=== PATIENT | male | born 1950 | race Caucasian/White ===

== ENCOUNTER 2017-11-22 13:15 | Emergency (ER) | payer MEDICARE, BC ==
--- NOTE | 2017-11-22 14:12 | EDM.PDOC ---
ED HPI GENERAL MEDICAL PROBLEM - General Chief Complaint: ENT Problem Stated Complaint: NOSEBLEED Time Seen by Provider: 11/22/17 13:23 Source of Information: Reports: Patient History Limitations: Reports: No Limitations - History of Present Illness INITIAL COMMENTS - FREE TEXT/NARRATIVE: The patient presents with epistaxis. The patient said he sneezed this morning and it started bleeding. He had moderate bleeding. He went to the [facility] clinic in [place] and they attempted to stop the bleeding and had to put a rhino rocket in. It would not stop so they sent him here for further management. He is on coumadin and his INR was 2.9. Onset: Sudden Duration: Hour(s): Severity: Moderate Improves with: Reports: None Worsens with: Reports: None Associated Symptoms: Reports: No Other Symptoms - Related Data Allergies Allergy/AdvReac Type Severity Reaction Status Date / Time No Known Allergies Allergy Verified 11/22/17 13:24 Home Meds: Home Meds Cephalexin [Keflex] 500 mg PO Q8H #30 cap 11/22/17 [Rx] Warfarin Sodium [Coumadin] 7.5 mg PO DAILY 11/22/17 [History] Past Medical History Cardiovascular History: Reports: Cardiomyopathy - Past Surgical History Cardiovascular Surgical History: Reports: Pacer Social & Family History - Tobacco Use Smoking Status *Q: Never Smoker Second Hand Smoke Exposure: No - Caffeine Use Caffeine Use: Reports: Coffee - Recreational Drug Use Recreational Drug Use: No ED ROS ENT - Review of Systems Review Of Systems: See Below Constitutional: Reports: No Symptoms HEENT: Reports: Nosebleed Respiratory: Reports: No Symptoms Cardiovascular: Reports: No Symptoms Endocrine: Reports: No Symptoms GI/Abdominal: Reports: No Symptoms : Reports: No Symptoms Musculoskeletal: Reports: No Symptoms ED EXAM, ENT - Physical Exam Exam: See Below Exam Limited By: No Limitations General Appearance: Alert, No Apparent Distress Ears: Normal External Exam Nose: Active Bleeding (Mild bleeding from the right nare) Head: Atraumatic, Normocephalic Neck: Normal Inspection Respiratory/Chest: No Respiratory Distress Extremities: Normal Inspection Neurological: Alert, Oriented, No Motor/Sensory Deficits ED ENT PROCEDURES - Epistaxis Procedure Indication: Epistaxis Recent anticoagulants/antiplatlets: Yes (Coumadin) Uncontrolled HTN: No Recent septal/nasal surgery: No Site of bleeding: Right Nare Clearing of clots: Patient Blew Nose Chemical cautery: Silver Nitrate Topical Anterior Packing: Petrolatum Guaze Strip, Inflatable Nasal Tampon Course - Vital Signs Last Recorded V/S: Last Vital Signs Temp 97.5 F 11/22/17 13:20 Pulse 89 11/22/17 13:20 Resp 18 11/22/17 13:20 BP 166/82 H 11/22/17 13:20 Pulse Ox 99 11/22/17 13:20 - Re-Assessments/Exams Free Text/Narrative Re-Assessment/Exam: 11/22/17 14:14 I was able to stop the bleeding for now. I will keep him around for awhile and she how he does. 11/22/17 16:09 He started bleeding again posterior and anterior. I packed him with petroleum gauze and it did not stop. I then had to use a rhino rocket with a posterior and anterior balloon. That did stop the bleeding. I will discharge him home. I will have him not take his coumadin today. Departure - Departure Time of Disposition: 16:15 Disposition: Home, Self-Care 01 Condition: Good Clinical Impression: Epistaxis - Discharge Information Prescriptions: Cephalexin [Keflex] 500 mg PO Q8H #30 cap Referrals: Rahul Woo MD [Primary Care Provider] - Forms: ED Department Discharge Additional Instructions: Take the keflex 3 times per day until gone. Keep the nasal balloon in for 2 to 3 days. Follow up with your doctor to get it out. Please return if you are worse.
== END 2017-11-22 17:03 | disposition home or self-care (01) ==
LOC: JD.ED 13:15
DX: R04.0 Epistaxis (principal); Z95.0 Presence of cardiac pacemaker; Z79.01 Long term (current) use of anticoagulants
CPT/HCPCS: 30903; 99283-25